=== PATIENT | female | born 1985 | race Two or more races ===

== ENCOUNTER 2016-09-04 04:02 | Emergency (ER) | payer SELFPAY ==
[2016-09-04 04:07] VITALS: BP 145/82
--- NOTE | 2016-09-04 07:19 | ER ---
Date of Service: 09/04/2016 SUBJECTIVE: Mattie presents to the emergency room with complaints of premature rupture of membranes. The patient states that she is approximately 29 weeks gestation and is 3 para 2. She states that she woke up from sleep and noticed that her bed was wet. She is not sure if it is from urine or if it was secondary to rupture of her uterine membrane. The patient states that she has no issues with incontinence and states that this has not happened in the past. PAST MEDICAL HISTORY: 3, para 2. MEDICATIONS: vitamins, ALLERGIES: NKDA. REVIEW OF SYSTEMS: Denies any contractions. No vaginal bleeding. Denies any bloody show. No back pain, abdominal pain, chest pain, or shortness of breath. PHYSICAL EXAMINATION: General: A 31-year-old female patient, no acute distress. Vital Signs: Blood pressure is 145/82, pulse rate is 96, temperature is 37.0, respiratory rate is 16, O2 saturations 99%. Skin: Warm, pink, and dry. HEENT: Mouth, oral mucosa is moist. Lungs: Clear to auscultation. Heart: Regular rate and rhythm. Abdomen: Soft, nontender. There is no hepatosplenomegaly noted. There is no masses noted. Genitourinary: heart tones were 140 to 150. Extremities: Without edema. Neurologic: Cranial nerves 2 through 12 are intact. Her speech is fluent. Her gait is within normal limits. ASSESSMENT: Possible premature rupture of membranes. PLAN: I spoke with Dr. Phelps at [facility] in [place]. The patient has no way to get to safer other than ambulance. She will be subsequently transported by [facility] ground ambulance for evaluation for possible premature rupture of membranes. MWK: 09/04/2016 06:44:38 MODL: 09/04/2016 07:10:24 /[id number]
== END 2016-09-04 04:16 | disposition short-term general hospital (02) ==
LOC: VM.ED 04:02
DX: O99.89 Other specified diseases and conditions complicating pregnancy, childbirth and the puerperium (principal); Z3A.29 29 weeks gestation of pregnancy
CPT/HCPCS: 99283-GF; 99285